=== PATIENT | male | born 1980 | race Two or more races ===

== ENCOUNTER 2019-08-27 09:21 | Emergency (ER) | payer MEDICARE, MEDICAID ==
[~2019-08-27] VITALS: Ht 167.6 cm; Wt 55.0 kg
--- NOTE | 2019-08-27 09:40 | NUR ---
PT BIB [facility] FOR C/O SI, PT STATES HE WANTS TO RUN IN TO ONCOMING TRAFFIC, PT WITH HX PREVIOUS SA. PT STATES "DID YOU HEAR THAT" HE HAS BEEN HEARING VOICES PER HIS REPORT. PT STATES HE HAS NO HX OF MENTAL HEALTH ILLNESS EXCEPT PTSD FOR WHICH HE TAKES PROPANOLOL FOR, BUT HE HASNT BEEN TAKING IT LATELY. PT STATES HE IS FEELING VERY ANXIOUS WELL. PT DOES REPORT TAKING A DRUG PRIOR TO ARRIVAL BUT WILL NOT TELL THIS RN WHAT HE INJESTED/INHALED. VS TAKEN, PT BELONGINGS GATHERED IN ONE BAG AND PLACED IN LOCKER, PT IN SECURE RM. PT WITH SITTER IN VIEW OF PT, AWAITING MD DALTON
[2019-08-27] MEDS ORDERED: HALOPERIDOL 5 MG/ML IM ONE (10:00)
--- NOTE | 2019-08-27 10:08 | NUR ---
BREAK RN: PT TO CT SCAN VIA S[facility]
[2019-08-27 10:16] LABS: BASOPHILS # (AUTO) 0.01 x10^3/uL (0-0.1); BASOPHILS % (AUTO) 0 % (0-1); EOSINOPHILS # (AUTO) 0.12 x10^3/uL (0-0.4); EOSINOPHILS % (AUTO) 2 % (1-7); LYMPHOCYTES # (AUTO) 0.68 x10^3/uL (1-3.4); LYMPHOCYTES % (AUTO) 11 % (22-44); MD NO; MEAN CORPUSCULAR HEMOGLOBIN 28.6 pg (27.5-34.5); MEAN CORPUSCULAR VOLUME 86.6 fL (81-97); MEAN PLATELET VOLUME 7.5 fL (7.4-10.4); MONOCYTES # (AUTO) 0.47 x10^3/uL (0.2-0.8); MONOCYTES % (AUTO) 8 % (2-9); NEUTROPHILS # (AUTO) 4.89 x10^3/uL (1.8-6.8); NEUTROPHILS % (AUTO) 79 % (42-75); PLATELET COUNT 342 x10^3/uL (130-400); RED BLOOD COUNT 5.25 x10^6/uL (4.38-5.82); RED CELL DISTRIBUTION WIDTH 14.6 % (9.4-14.8)
--- NOTE | 2019-08-27 10:19 | NUR ---
PT BACK FROM CT, A Addendum: 08/27/19 at 1020 by AMCCOMB AMBULATED TO BR WITH STEADY GAIT, PT STATES UNABLE TO PROVIDE US AT THIS TIME, EKG COMPLETED BY RELAY WORKER. PT TO CARD MONITOR, PULSE OX, BP PER MD ORDER.
[2019-08-27 10:23] LABS: ALBUMIN 4.8 g/dL (3.4-5.0); ANION GAP 10 mmol/L (5-15); CALCIUM 9.5 mg/dL (8.5-10.1); CHLORIDE 102 mmol/L (98-107)
[2019-08-27] MEDS ORDERED: HALOPERIDOL 5 MG/ML ONE (10:30)
[2019-08-27 10:33] LABS: SALICYLATE LEVEL 1.9 mg/dL (2.8-20.0)
--- NOTE | 2019-08-27 10:39 | NUR ---
UDS COLLECTED AND SENT. OK PER FOR PT TO BE MEDIUM SI PRECAUTIONS PT IS NOT FLIGHT RISK. VLADIMIR PUGH TO EVAL PT. PT MEDICATED PER NOV.
[2019-08-27] MEDS ORDERED: PLEASE ENTER ALLERGIES MC SCH (11:00)
[2019-08-27 11:25] LABS: AMPHETAMINE SCREEN, URINE Positive (Negative); BARBITURATE SCREEN, URINE Negative (Negative); BENZODIAZEPINE SCREEN, URINE Negative (Negative); CANNABINOID SCREEN, URINE Positive (Negative); COCAINE SCREEN, URINE Negative (Negative); METHADONE SCREEN, URINE Negative (Negative); OPIATE SCREEN, URINE Negative (Negative)
--- NOTE | 2019-08-27 11:27 | NUR ---
KEATON GILBERT IN TO EVAL PT. PT SEDATED AT THIS TIME, UNABLE TO PARTICPATE IN EVAL COMPLETEDLTY Addendum: 08/27/19 at 1128 by AMCSHANT TELEMETRY RN TO RETURN LATER TO EVAL PT, PT NOT ON LH AT THIS TIME
--- NOTE | 2019-08-27 11:53 | NUR ---
PT SLEEPING ON GURNEY, VISIBLE CHEST RISE AND FALL NOTED, NAD.
--- NOTE | 2019-08-27 13:58 | NUR ---
PT CONTINUES TO REST ON GURENY, VISIBLE CHEST RISE AND FALL. PT STILL ON CARD MONIOR, PULSE OX, BP S/P HALDOL ADMIN. SI PRECAUTIONS ARE IN PLACE. NAD NOTED
[2019-08-27 13:59] VITALS: BP 114/87
--- NOTE | 2019-08-27 16:44 | NUR ---
Patient/Caregiver given discharge instructions and they have confirmed that they understand the instructions. Patient ambulatory with steady gait.
== END 2019-08-27 16:46 | disposition home or self-care (01) ==
LOC: ED 13:10
DX: F12.151 Cannabis abuse with psychotic disorder with hallucinations (principal); F15.951 Other stimulant use, unspecified with stimulant-induced psychotic disorder with hallucinations; R00.0 Tachycardia, unspecified; Z72.9 Problem related to lifestyle, unspecified
CPT/HCPCS: 36415; 70450; 80048; 80307; 82040; 84443; 85025; 93005; 96372; 99284; J1630; Q0177

== ENCOUNTER 2019-10-17 03:37 | Emergency (ER) | payer MEDICARE, MEDICAID ==
[~2019-10-17] VITALS: Ht 170.2 cm; Wt 57.2 kg
--- NOTE | 2019-10-17 04:01 | NUR ---
BREAK RN-INITIAL CONTACT WITH PT. PT HERE WITH ANXIETY, NEGATIVE THOUGHTS. HAS BEEN OFF PYSCH MEDS X 6 MONTHS. STATES HEARING VOICES. PT COOPERATIVE WITH CARE.
[2019-10-17] MEDS ORDERED: LORazepam 1MG TABLET ONE (04:26)
--- NOTE | 2019-10-17 04:29 | NUR ---
PT MEDICATED PER MAR. POC DISCUSSED. PT AWARE A URINE SAMPLE IS NEEDED. URINAL PROVIDED. PT DENIES FURTHER NEEDS AT THIS TIME.
[2019-10-17] MEDS ORDERED: LORazepam 1MG TABLET PO ONE (04:30)
[2019-10-17 04:40] LABS: BASOPHILS # (AUTO) 0.01 x10^3/uL (0-0.1); BASOPHILS % (AUTO) 0 % (0-1); EOSINOPHILS # (AUTO) 0.12 x10^3/uL (0-0.4); EOSINOPHILS % (AUTO) 1 % (1-7); LYMPHOCYTES % (AUTO) 9 % (22-44); MD NO; MEAN CORPUSCULAR HGB CONC 33.3 g/dL (33.2-36.2); MEAN CORPUSCULAR VOLUME 86.9 fL (81-97); MEAN PLATELET VOLUME 8.4 fL (7.4-10.4); MONOCYTES # (AUTO) 0.81 x10^3/uL (0.2-0.8); MONOCYTES % (AUTO) 9 % (2-9); NEUTROPHILS % (AUTO) 81 % (42-75); PLATELET COUNT 296 x10^3/uL (130-400); RED CELL DISTRIBUTION WIDTH 15.2 % (9.4-14.8)
[2019-10-17 04:43] LABS: ALANINE AMINOTRANSFERASE 56 U/L (12-78); ALBUMIN 4.4 g/dL (3.4-5.0); ANION GAP 7 mmol/L (5-15); CHLORIDE 102 mmol/L (98-107); CREATININE 1.06 mg/dL (0.7-1.3)
[2019-10-17 04:44] LABS: SALICYLATE LEVEL < 1.7 mg/dL (2.8-20.0)
[2019-10-17 04:45] LABS: ALKALINE PHOSPHATASE 64 U/L (45-117); BILIRUBIN,TOTAL 1.1 mg/dL (0.2-1.0); TOTAL PROTEIN 7.6 g/dL (6.4-8.2)
--- NOTE | 2019-10-17 05:02 | NUR ---
PT TO RESTROOM FOR UA AT THIS TIME.
--- NOTE | 2019-10-17 05:10 | NUR ---
PT ATTEMPTED UA. UNABLE TO PRODUCE SAMPLE.
[2019-10-17] MEDS ORDERED: HYDR10TA4 PO (05:23)
[2019-10-17] MEDS ORDERED: PROP10TA16 PO (05:23)
[2019-10-17] MEDS ORDERED: QUET25TA5 PO (05:23)
--- NOTE | 2019-10-17 05:24 | NUR ---
MD VIZCARRA'D PAGING TELEPSYCH WITHOUT UDS. TELEPSYCH PAGED AT THIS TIME.
--- NOTE | 2019-10-17 06:33 | NUR ---
REPORT GIVEN TO TELEPSYCH DOCTOR
--- NOTE | 2019-10-17 08:09 | NUR ---
TELEPSYCH CONSULT IN PROGRESS.
--- NOTE | 2019-10-17 08:51 | NUR ---
TELE PSYCH COMPLETE. SOC MD RECOMMENDING INPATIENT ADMIT.
[2019-10-17] MEDS ORDERED: OLANZAPINE 5 MG TABLET ONE (08:53)
--- NOTE | 2019-10-17 08:55 | NUR ---
PT MEDICATED WITH ZYPREXA. URINE COLLECTED AND SENT TO LAB. PT RESTING WITH NO COMPLAINTS. FOOD TRAY ORDERED.
[2019-10-17] MEDS ORDERED: OLANZAPINE 5 MG TABLET PO ONE (09:00)
--- NOTE | 2019-10-17 09:09 | NUR ---
REPORT FROM BILL
[2019-10-17 09:20] LABS: AMPHETAMINE SCREEN, URINE Positive (Negative); CANNABINOID SCREEN, URINE Positive (Negative); METHADONE SCREEN, URINE Negative (Negative); OPIATE SCREEN, URINE Negative (Negative)
--- NOTE | 2019-10-17 09:21 | NUR ---
REPORT TO [facility]. PT TRANSFERRED TO ROOM 1
[2019-10-17 09:23] LABS: BARBITURATE SCREEN, URINE Negative (Negative); BENZODIAZEPINE SCREEN, URINE Negative (Negative); COCAINE SCREEN, URINE Negative (Negative)
--- NOTE | 2019-10-17 10:05 | NUR ---
PT PROVIDED MEAL TRAY. SITTER AT DOORWAY.
--- NOTE | 2019-10-17 10:55 | NUR ---
BELONGING REMOVED, PLACED IN ONE BELONGING BAG AND TO LOCKER. SITTER AT DOORWAY.
--- NOTE | 2019-10-17 11:04 | NUR ---
PT REQUESTING , CALLED AND AT BS NOW.
--- NOTE | 2019-10-17 13:22 | NUR ---
THROUGHPUT RN: PACKET FAXED TO [facility], [facility], AND [facility].
[2019-10-17] MEDS ORDERED: QUETIAPINE 25MG TABLET PO ONE (14:30)
[2019-10-17] MEDS ORDERED: QUETIAPINE 25MG TABLET ONE (14:44)
--- NOTE | 2019-10-17 14:49 | NUR ---
MEDS GIVEN PER EMAR FOR PT R/O AUDITORY HALLUCINATIONS. CONTINUE CLOSE OBS WITH SITTER AT DOORWAY.
--- NOTE | 2019-10-17 15:50 | NUR ---
PT SLEEPING, NAD. SITTER AT DOORWAY.
--- NOTE | 2019-10-17 17:53 | NUR ---
REPORT TO HAILEY CALIMESA. HAILEY ACCEPTING, PT CAN BE TRANSPORTED NO EARLIER THAN 1999. THROUGHPUT RN INFORMED. VSS/UPDATED IN COMPUTER. PT STATES HE IS FEELING BETTER, LESS AH SINCE MED GIVEN. SITTER AT DOORWAY FOR CLOSE OBS.
--- NOTE | 2019-10-17 18:20 | NUR ---
MEAL PROVIDED, SITTER AT DOORWAY.
--- NOTE | 2019-10-17 18:50 | NUR ---
report from maycol gonzalez
--- NOTE | 2019-10-17 19:00 | NUR ---
REPORT TO RHONDA MAHMOOD, TRANSFER OF CARE AT THIS TIME.
--- NOTE | 2019-10-17 20:54 | NUR ---
pt resting on gurney, respirations even and unlabored. sitter at bedside for frequent checks.
[2019-10-17 20:55] VITALS: BP 125/82
[2019-10-17] MEDS ORDERED: QUETIAPINE 100MG TABLET PO SCH (21:00)
--- NOTE | 2019-10-17 21:15 | NUR ---
IAN HERE, REPORT GIVEN TO MEDICS, PT TO [facility].
[2019-10-18] MEDS ORDERED: QUETIAPINE 25MG TABLET PO SCH (09:00)
== END 2019-10-17 21:18 ==
LOC: ED 04:27
DX: F43.11 Post-traumatic stress disorder, acute (principal); R45.851 Suicidal ideations; F15.10 Other stimulant abuse, uncomplicated; R44.0 Auditory hallucinations; F17.210 Nicotine dependence, cigarettes, uncomplicated; X58.XXXA Exposure to other specified factors, initial encounter; Y93.89 Activity, other specified; Y92.89 Other specified places as the place of occurrence of the external cause; Y99.8 Other external cause status
CPT/HCPCS: 36415; 80053; 80307; 85025; 99285